=== PATIENT | female | born 1995 | race Caucasian/White ===

== ENCOUNTER 2024-03-12 11:56 | Inpatient (IN) | payer OTHER ==
[2024-03-13] MEDS ORDERED: CALCIUM CARBONATE 500 MG CHEW PO PRN
[2024-03-13] MEDS ORDERED: LACTATED RINGER'S 1,000 ML IV SCH
[2024-03-13] MEDS ORDERED: MAGNESIUM HYDROXIDE/AL HYDROX 30 ML CUP PO PRN
[2024-03-13] MEDS ORDERED: miSOPROStoL 25 MCG TAB PV SCH
[2024-03-14] MEDS ORDERED: OXYTOCIN/DEXTROSE 5% 20 UNITS/100 ML BAG IV SCH (00:30)
[2024-03-14] MEDS ORDERED: LACTATED RINGER'S 1,000 ML IV PRN (00:30)
[2024-03-14 00:38] LABS: HEMATOCRIT 37.2 % (35.0-50.0); MCH 30.8 (27-36); MCHC 35.1 g/dl (30-36); RBC 4.23 M/ul (4.3-5.7); RDW 12.7 (10.5-15.0)
[2024-03-14 00:54] LABS: AMPHETAMINES, URINE NEGATIVE (NEGATIVE); BARBITURATES, URINE NEGATIVE (NEGATIVE); BENZODIAZEPINE, URINE NEGATIVE (NEGATIVE); BUPRENORPHINE, URINE NEGATIVE (NEGATIVE); CANNABINOID, URINE POSITIVE (NEGATIVE); COCAINE, URINE NEGATIVE (NEGATIVE); ECSTASY, URINE NEGATIVE (NEGATIVE); FENTANYL, URINE NEGATIVE (NEGATIVE); METHADONE, URINE NEGATIVE (NEGATIVE); OPIATES, URINE NEGATIVE (NEGATIVE); OXYCODONE, URINE NEGATIVE (NEGATIVE); PHENCYCLIDINE, URINE NEGATIVE (NEGATIVE)
[2024-03-14] MEDS ORDERED: miSOPROStoL 25 MCG TAB PV SCH (01:00)
[2024-03-14 01:23] LABS: ABO O; ANTIBODY SCREEN NEGATIVE; RH POSITIVE
[2024-03-14] MEDS ORDERED: LIDOCAINE HCL 1% 30 ML SDV INJ ONE (09:26)
[2024-03-14] MEDS ORDERED: ePHEDrine sulfate 5 MG/ML SYRINGE IV PRN (09:30)
[2024-03-14] MEDS ORDERED: LACTATED RINGER'S 2,000 ML IV ONE (09:30)
[2024-03-14] MEDS ORDERED: ROPIVACAINE 0.2% 200 ML BAG EPIDURAL SCH (09:30)
[2024-03-14] MEDS ORDERED: LACTATED RINGER'S 500 ML IV PRN (09:30)
[2024-03-14] MEDS ORDERED: ondansetron HCL 4 MG/2 ML VIAL IV PRN (11:30)
[2024-03-14] MEDS ORDERED: ePHEDrine KIT FOR FBC IV ONE (12:58)
[2024-03-14] MEDS ORDERED: ePHEDrine sulfate 50 MG/ML AMP IM PRN (14:00)
[2024-03-14] MEDS ORDERED: OXYCODONE HCL 5 MG TAB PO PRN (19:45)
[2024-03-14] MEDS ORDERED: OXYCODONE/APAP 5/325 TAB PO PRN (19:45)
[2024-03-14] MEDS ORDERED: MAGNESIUM HYDROXIDE 30 ML UDC PO PRN (19:45)
[2024-03-14] MEDS ORDERED: ACETAMINOPHEN 325 MG TAB PO PRN (19:45)
[2024-03-14] MEDS ORDERED: HYDROCODONE/ACETA 5/325 TAB PO PRN (19:45)
[2024-03-14] MEDS ORDERED: HYDROCORTISONE ACETATE 25 MG SUPP PR PRN (19:45)
[2024-03-14] MEDS ORDERED: OXYTOCIN/0.9 % SODIUM CHLORIDE 500 ML IV SCH (19:45)
[2024-03-14] MEDS ORDERED: WITCH HAZEL/GLYCERIN 1 EA PAD TOP PRN (19:45)
[2024-03-14] MEDS ORDERED: BENZOCAINE 60 ML AEROSOL TOP PRN (19:45)
[2024-03-14] MEDS ORDERED: LIDOCAINE 2% VISCOUS 6 ML SYR TOP ONE ×2 (19:45)
[2024-03-14] MEDS ORDERED: IBUPROFEN 600 MG TAB PO PRN (19:45)
[2024-03-14] MEDS ORDERED: CALCIUM CARBONATE 500 MG CHEW PO PRN (19:45)
[2024-03-14] MEDS ORDERED: MAGNESIUM HYDROXIDE/AL HYDROX 30 ML CUP PO PRN (19:45)
[2024-03-14] MEDS ORDERED: SENNOSIDES/DOCUSATE 1 EA TAB PO SCH (21:00)
[2024-03-15 05:28] LABS: HEMATOCRIT 33.8 % (35.0-50.0); HEMOGLOBIN 11.5 g/dL (12.0-18.0); MCH 30.2 (27-36); MCHC 34.1 g/dl (30-36); MCV 88.4 fl (81-99); RBC 3.82 M/ul (4.3-5.7); RDW 12.8 (10.5-15.0)
== END 2024-03-16 11:45 | disposition home or self-care (01) | DRG 806 ==
LOC: FBC 03-13 11:54
PROVIDERS: ADMIT Obstetrics & Gynecology; ATTEND Obstetrics & Gynecology
PROC: 10E0XZZ Delivery of Products of Conception, External Approach (ICD-10-PCS; principal; 2024-03-14)
PROC: 0KQM0ZZ Repair Perineum Muscle, Open Approach (ICD-10-PCS; 2024-03-14)
PROC: 10907ZC Drainage of Amniotic Fluid, Therapeutic from Products of Conception, Via Natural or Artificial Opening (ICD-10-PCS; 2024-03-14)
PROC: 3E0R3BZ Introduction of Anesthetic Agent into Spinal Canal, Percutaneous Approach (ICD-10-PCS; 2024-03-14)
PROC: 00HU33Z Insertion of Infusion Device into Spinal Canal, Percutaneous Approach (ICD-10-PCS; 2024-03-14)
DX: O77.0 Labor and delivery complicated by meconium in amniotic fluid (principal); O98.32 Other infections with a predominantly sexual mode of transmission complicating childbirth; Z37.0 Single live birth; Z3A.39 39 weeks gestation of pregnancy; O70.1 Second degree perineal laceration during delivery; A60.00 Herpesviral infection of urogenital system, unspecified; Z98.890 Other specified postprocedural states; Z87.891 Personal history of nicotine dependence
CPT/HCPCS: 01960; 36415; 80307; 85027; 86850; 86900; 86901; A9270; J2405; J2590; J7121